=== PATIENT | male | born 1965 | race Caucasian/White ===

== ENCOUNTER 2022-09-19 20:36 | Emergency (ER) | payer OTHER, SELFPAY ==
[~2022-09-19] VITALS: Ht 185.4 cm; Wt 98.4 kg
[~2022-09-19 20:36] MED LIST: BACT800T5 PO; CYMB1CAP5 OR; HYDR5TAB23 PO; NICO21DI6 TD; OMEP20TA7 OR; SM I100T PO; TRAM50TA2 PO; [UNRECOGNIZED DRUG - OTHER] TD
[2022-09-19 21:16] LABS: BASO # 0.1 10^3/uL (0.0-0.2); BASO % 0.4 % (0.0-1.0); EOS % 0.1 % (0.0-3.0); HEMOGLOBIN 15.1 g/dl (13.5-17.5); LYMPH # 1.2 10^3/uL (1.5-5.0); MEAN CORPUSCULAR HEMOGLOBIN 30.8 pg (27.0-33.0); MEAN CORPUSCULAR HGB CONC 32.1 g/dl (32.0-36.5); MEAN CORPUSCULAR VOLUME 95.7 fl (80.0-96.0); MONO % 10.2 % (2.0-8.0); NEUTROPHILS # 20.5 10^3/uL (1.5-8.5); NEUTROPHILS % 83.2 % (36.0-66.0); PLATELET COUNT, AUTOMATED 351 10^3/uL (150-450); RED BLOOD COUNT 4.91 10^6/uL (4.30-6.10); WHITE BLOOD COUNT 24.6 10^3/uL (4.0-10.0)
[2022-09-19] MEDS ORDERED: DEXTROSE 50% 50ML VIAL As Ordered ONE (21:16)
[2022-09-19] MEDS ORDERED: DEXTROSE 50% 50ML SYRINGE IV STA (21:17)
[2022-09-19 21:32] LABS: BENZODIAZEPINES URINE NEGATIVE (NEGATIVE)
[2022-09-19 21:33] LABS: BARBITURATES URINE NEGATIVE (NEGATIVE); CANNABINOIDS URINE NEGATIVE (NEGATIVE); COCAINE METABOLITE URINE NEGATIVE (NEGATIVE); METHADONE URINE NEGATIVE (NEGATIVE); OPIATES URINE NEGATIVE (NEGATIVE); PHENCYCLIDINE URINE NEGATIVE (NEGATIVE)
[2022-09-19 21:34] LABS: AMPHETAMINES LEVEL URINE POSITIVE (NEGATIVE)
[2022-09-19 21:35] LABS: ETHYL ALCOHOL (ETHANOL) < 0.003 % (0.000-0.010)
[2022-09-19 21:36] LABS: ACETAMINOPHEN LEVEL < 2.0 UG/ML (10.0-20.0); SALICYLATE LEVEL < 3.0 MG/DL (<30)
[2022-09-19 21:37] LABS: ALBUMIN 4.1 G/DL (3.2-5.2); ALKALINE PHOSPHATASE 137 U/L (46-116); ALT/SGPT 68 U/L (7.0-40); AST/SGOT 76 U/L (<34); BILIRUBIN,DIRECT < 0.1 MG/DL (<0.4); BILIRUBIN,TOTAL 0.2 MG/DL (0.3-1.2); BLOOD UREA NITROGEN 17 MG/DL (9-23); CALCIUM LEVEL 8.9 MG/DL (8.5-10.1); CARBON DIOXIDE LEVEL 26 MMOL/L (20-31); CHLORIDE LEVEL 107 MMOL/L (98-107); CREATININE FOR GFR 1.85 MG/DL (0.70-1.30); GLOMERULAR FILTRATION RATE 40.8 (>56); GLUCOSE, FASTING 70 MG/DL (60-100); POTASSIUM SERUM 4.8 MMOL/L (3.5-5.1); SODIUM LEVEL 143 MMOL/L (136-145); TOTAL PROTEIN 7.3 G/DL (5.7-8.2)
[2022-09-19 21:39] LABS: THYROID STIMULATING HORMONE 1.925 uIU/ML (0.55-4.78)
[2022-09-19 21:40] LABS: CPK CREATINE PHOSPHOKINASE 678 U/L (46-171)
[2022-09-19 21:43] LABS: MONO # 2.5 10^3/uL (0.0-0.8)
[2022-09-19] MEDS ORDERED: ISOVUE-370 76% 100ML VIAL As Ordered ONE (21:53)
[2022-09-19 21:57] LABS: PROTHROMBIN TIME 13.4 SECONDS (12.5-14.5)
[2022-09-19 21:58] LABS: PARTIAL THROMBOPLASTIN TIME 31.3 SECONDS (24.8-34.2)
[2022-09-19] MEDS ORDERED: MIDAZOLAM 100MG/100ML-0.9%NACL 100 MG in IV 1 EA IV SCH (22:15)
[2022-09-19] MEDS ORDERED: ETOMIDATE INJ 20MG/10ML VIAL IV ONE (22:15)
[2022-09-19] MEDS ORDERED: ROCURONIUM BROMIDE 50MG/5ML VIAL IV PRN (22:15)
[2022-09-19] MEDS ORDERED: ROCURONIUM BROMIDE 50MG/5ML VIAL IV ONE (22:15)
[2022-09-19 22:55] VITALS: BP 100/65; TEMP 97.2
[2022-09-19 23:04] VITALS: O2SAT 100
== END 2022-09-19 23:01 | disposition short-term general hospital (02) ==
LOC: EDBD 20:36 → M ED 20:36
DX: I63.432 Cerebral infarction due to embolism of left posterior cerebral artery (principal); J96.01 Acute respiratory failure with hypoxia; Z79.899 Other long term (current) drug therapy
CPT/HCPCS: 31500; 36415; 51701; 51702; 70450; 70496; 70498; 71045; 72125; 80048; 80076; 80143; 80307; 82077; 82550; 84443; 85025; 85610; 85730; 87635; 93005; 93041; 94760; 96365; 96375; 99285; J2250; Q9967